=== PATIENT | female | born 1990 | race Caucasian/White ===

== ENCOUNTER 2019-01-31 04:21 | Inpatient (IN) | payer OTHER, SELFPAY ==
[2019-01-31 05:26] LABS: Add Manual Diff / Slide Review NO; Basophils Absolute Auto 100 /uL (0-100); Basophils Percent Auto 0.9 % (0-2); Eosinophils Absolute Auto 100 /uL (0-450); Eosinophils Percent Auto 0.9 % (2-4); Hematocrit 36.9 % (36-46); Hemoglobin 12.5 g/dL (12.0-16.0); Lymphocytes Absolute Auto 2900 /uL (1100-4500); Lymphocytes Percent Auto 23.9 % (25-40); Mean Corpuscular HGB Conc 33.8 % (30-36); Mean Corpuscular Hemoglobin 30.4 PG (26-34); Mean Corpuscular Volume 90.1 fL (80-100); Monocytes Absolute Auto 700 /uL (0-900); Monocytes Percent Auto 5.8 % (3-14); Neutrophils Absolute Auto 8200 /uL (1500-7000); Neutrophils Percent Auto 68.5 % (50-75); Platelet Count 235 X10^3/uL (150-400); Red Blood Cell Count 4.09 X10^6/uL (4.0-5.2); Red Cell Distribution Width 13.4 % (11.6-14.8)
[2019-01-31 05:26] LABS: Appearance Urine UA SL CLOUDY; Bilirubin Urine UA NEGATIVE (NEGATIVE); Color Urine UA YELLOW; Glucose Urine UA NEGATIVE (Negative); Ketones Urine UA TRACE (NEGATIVE); Leukocyte Esterase Urine UA 1+ (NEGATIVE); Nitrite Urine UA NEGATIVE (Negative); Occult Blood Urine UA 3+ (Negative); Protein Urine UA 1+ (Negative); Specific Gravity Urine UA >=1.030 (1.000-1.035); Urobilinogen Urine UA 0.2 E.U./dL (0.2); pH Urine UA 5.5 (4.5-8.0)
--- NOTE | 2019-01-31 05:37 | DI.US.S_ITS ---
PROCEDURE: US OB >= 14 WEEKS FETUS INDICATIONS: 28 wk IUP bleeding OUTSIDE/PRIOR DATING DATA: Last menstrual period (LMP): Unknown. LMP-based estimated date of delivery (MAURO): Not applicable. Per patient, expected gestational age is approximately 28 weeks.. First dating scan (date and location): [facility]. No report available.. Estimated date of delivery (MAURO) from first dating scan: Not applicable. TECHNIQUE: Real-time scanning was performed of the fetus, with image documentation and biometric measurements. Endovaginal scanning: Performed to further evaluate the cervix COMPARISON: None. FINDINGS: General: A single living intrauterine gestation is present. Presentation: Vertex. Placenta: Placental position is posterior, without previa. Amniotic fluid index: 10.8 cm cm, normal range is 5-24 cm. heart rate: 147 beats per minute. Maternal cervical canal: Between 1.9 and 2.4 cm. Normal lower limit is 2.5 cm. there may be slight cervical funneling. Umbilical cord insertion on the placenta is within 1.2 cm the placental margin. 3 vessels were identified. biometrics: Technically difficult study secondary to maternal motion, contractions, lack of good acoustic window, and head position. Biparietal diameter: Approximately 8.1 cm, 32 weeks 3 days Head circumference: Approximately 29.1 cm, 32 weeks one day Abdominal circumference: Approximately 27.0 cm, 31 weeks one day Femur length: 6.5 cm, 33 weeks 5 days Estimated gestational age from initial scan: not applicable. Composite gestational age from present scan: 32 weeks 3 days Estimated weight and percentile: 1907 g plus or -282 g (4 lbs. 3 oz. plus or -10 ounces). . A four-chamber heart was visible. Anatomic survey was not completed. IMPRESSION: 1. Single living intrauterine with a composite gestational age by today's measurements of 32 weeks 3 days and estimated due date of 03/25/19. 2. Mildly shortened cervix with slight funneling. Clinical correlation recommended. 3. Marginal umbilical cord insertion on the posterior placenta. Dictated by: Osiris Simmons M.D. on 01/31/2019 at 8:32 Approved by: Osiris Simmons M.D. on 01/31/2019 at 8:49
[2019-01-31 05:50] LABS: RBC Urine 30-100/HPF (0-5/HPF); Squamous Epithelial Cell Urine 1-5 /HPF; WBC Urine 1-5/HPF (0-5/HPF)
[2019-01-31 05:51] LABS: Bacteria Urine Moderate (10-30); Culture Indicated Urine Specimen Cultured
[2019-01-31 06:56] LABS: Hepatitis B Surface Antigen NEGATIVE s/c (NEGATIVE); Rubella Antibody IgG 11.8 IU/mL (>15)
--- NOTE | 2019-01-31 07:18 | RT ---
CALLED TO EMERGENT VAGINAL DELIVERY OF 32 WEEK OLD. BABY BORN AT 0708 W/ IMMEDIATE CRY. BABY WARMED, DRIED, AND STIMULATED. MILD ACRO-CYANOSIS NOTED, QUICKLY IMPROVING ON RA. O2 SAT ON RA NOTED AT 80% AND IMPROVING, WELL WITHIN NORMAL LIMIT. TONE AND HR BOTH GOOD. INITIAL BILATERAL CRACKLES IMPROVED TO CLEAR W/ CRY. BULB SX DONE FOR A SMALL AMT OF CLEAR, BOOD-TINGED AMNIOTIC FLUID. BABY LEFT IN CARE OF RN AND LEGAL LIBRARIAN.
--- NOTE | 2019-01-31 08:00 | PM.OBHP.1 ---
OB HPI Date/Time Date of admission: 01/31/19 Date Patient Seen: 01/31/19 Time Patient Seen: 08:01 History of Present Condition Chief complaint: obs : 5 Para: 1 Estimated Date of Delivery: 03/25/19 Estimated Gestational Age (weeks): 33+2 Narrative: Geovanna Loera is a 28 year old female 5 para 0 1 3 1 with no care who presented in labor Indications Other reason(s) for admission: labor History of Present care: none Dating criteria: based on 3rd trimester US only Obstetrical complications: labor and other (No care) Medical complications: other (Drug use during ) Narrative: Patient admits to using morphine yesterday, cocaine 10 days ago Preadmission Labs Blood type: O (+) positive -: Antibody screen: negative, GBS status: unknown and HBsAG: negative -: Rubella: not immune HCT: 36.9 Prior (ies) History: C/S at 33 weeks for breech and PTL Evaluation Evaluation Baseline heart rate: 135 Variability: Average (6-10) monitor accelerations: Present monitor decelerations: Absent Contraction Frequency (minutes): 3 Uterine Contraction Intensity: Moderate Category of Tracing: I Cervical dilation (cm): 10 Cervical effacement (%): 100 station: +2 Laboratory results: Laboratory Tests 01/31/19 01/31/19 01/31/19 04:30 04:45 04:45 WBC 12.0 H RBC 4.09 Hgb 12.5 Hct 36.9 MCV 90.1 MCH 30.4 MCHC 33.8 RDW 13.4 Plt Count 235 Neut % (Auto) 68.5 Lymph % (Auto) 23.9 L [place] % (Auto) 5.8 Eos % (Auto) 0.9 L Baso % (Auto) 0.9 Neut # (Auto) 8200 H Lymph # (Auto) 2900 [place] # (Auto) 700 Eos # (Auto) 100 Baso # (Auto) 100 Urine Color Yellow Urine Appearance Sl cloudy Urine pH 5.5 Ur Specific [place] >=1.030 H Urine Protein 1+ H Urine Glucose (UA) Negative Urine Ketones Trace H Urine Occult Blood 3+ H Urine Nitrate Negative Urine Bilirubin Negative Urine Urobilinogen 0.2 Ur Leukocyte Esterase 1+ H Urine RBC 30-100/hpf H Urine WBC 1-5/hpf Ur Squamous Epith Cells 1-5 /hpf Urine Bacteria Moderate (10-30) H Ur Culture Indicated? Specimen cultured Hep Bs Antigen Rubella Antibody Blood Type O Positive Antibody Screen Negative 01/31/19 05:44 WBC RBC Hgb Hct MCV MCH MCHC RDW Plt Count Neut % (Auto) Lymph % (Auto) [place] % (Auto) Eos % (Auto) Baso % (Auto) Neut # (Auto) Lymph # (Auto) [place] # (Auto) Eos # (Auto) Baso # (Auto) Urine Color Urine Appearance Urine pH Ur Specific [place] Urine Protein Urine Glucose (UA) Urine Ketones Urine Occult Blood Urine Nitrate Urine Bilirubin Urine Urobilinogen Ur Leukocyte Esterase Urine RBC Urine WBC Ur Squamous Epith Cells Urine Bacteria Ur Culture Indicated? Hep Bs Antigen Negative Rubella Antibody 11.8 L Blood Type Antibody Screen [facility] Medical History Drug use affecting (Acute) Surgical History H/O hernia repair (Acute) Status post delivery Social History marital status: unmarried,single number of children: 1 household members: family and children lives independently: No caregiver/support person: Yes (Mother) housing: house occupational status: unemployed Smoking Status: Current every day smoker quit status: considering quitting alcohol intake: never substance use type: crack/cocaine, opiates and methamphetamine Social History marital status: unmarried,single number of children: 1 household members: family and children lives independently: No caregiver/support person: Yes (Mother) housing: house occupational status: unemployed Smoking Status: Current every day smoker quit status: considering quitting alcohol intake: never substance use type: crack/cocaine, opiates and methamphetamine Meds Allergies Allergy/AdvReac Type Severity Reaction Status Date / Time codeine Allergy Hives Verified 01/31/19 05:04 Exam Vital Signs (past 8 hours): Generally: Patient in severe distress due to contractions Lungs: Clear to auscultation bilaterally Cardiovascular: Regular rate and rhythm Fundal height: 32 cm Extremities: Negative Homans Objective Labs Result Diagrams: 01/31/19 04:45 Labs: Laboratory Results - last 24 hr 01/31/19 01/31/19 01/31/19 04:30 04:45 04:45 WBC 12.0 H RBC 4.09 Hgb 12.5 Hct 36.9 MCV 90.1 MCH 30.4 MCHC 33.8 RDW 13.4 Plt Count 235 Neut % (Auto) 68.5 Lymph % (Auto) 23.9 L [place] % (Auto) 5.8 Eos % (Auto) 0.9 L Baso % (Auto) 0.9 Neut # (Auto) 8200 H Lymph # (Auto) 2900 [place] # (Auto) 700 Eos # (Auto) 100 Baso # (Auto) 100 Urine Color Yellow Urine Appearance Sl cloudy Urine pH 5.5 Ur Specific [place] >=1.030 H Urine Protein 1+ H Urine Glucose (UA) Negative Urine Ketones Trace H Urine Occult Blood 3+ H Urine Nitrate Negative Urine Bilirubin Negative Urine Urobilinogen 0.2 Ur Leukocyte Esterase 1+ H Urine RBC 30-100/hpf H Urine WBC 1-5/hpf Ur Squamous Epith Cells 1-5 /hpf Urine Bacteria Moderate (10-30) H Ur Culture Indicated? Specimen cultured Hep Bs Antigen Rubella Antibody Blood Type O Positive Antibody Screen Negative 01/31/19 05:44 WBC RBC Hgb Hct MCV MCH MCHC RDW Plt Count Neut % (Auto) Lymph % (Auto) [place] % (Auto) Eos % (Auto) Baso % (Auto) Neut # (Auto) Lymph # (Auto) [place] # (Auto) Eos # (Auto) Baso # (Auto) Urine Color Urine Appearance Urine pH Ur Specific [place] Urine Protein Urine Glucose (UA) Urine Ketones Urine Occult Blood Urine Nitrate Urine Bilirubin Urine Urobilinogen Ur Leukocyte Esterase Urine RBC Urine WBC Ur Squamous Epith Cells Urine Bacteria Ur Culture Indicated? Hep Bs Antigen Negative Rubella Antibody 11.8 L Blood Type Antibody Screen Assessment and Plan Assessment and Plan Assessment and Plan narrative: Assessment: 28-year-old 5 para 0131 at 33-,2/7 weeks gestation by a third-trimester ultrasound with labor and imminent delivery Drug use during this Previous section Plan: Dr. Sim, open developer operator, notified Transport team notified OR team notified Expected management to urgent section versus vaginal delivery
--- NOTE | 2019-01-31 08:03 | P.HPOB_ITS ---
OB HPI Date/Time Date of admission: 01/31/19 Date Patient Seen: 01/31/19 Time Patient Seen: 08:01 History of Present Condition Chief complaint: obs : 5 Para: 1 Estimated Date of Delivery: 03/25/19 Estimated Gestational Age (weeks): 33+2 Narrative: Geovanna Loera is a 28 year old female 5 para 0 1 3 1 with no care who presented in labor Indications Other reason(s) for admission: labor History of Present care: none Dating criteria: based on 3rd trimester US only Obstetrical complications: labor and other (No care) Medical complications: other (Drug use during ) Narrative: Patient admits to using morphine yesterday, cocaine 10 days ago Preadmission Labs Blood type: O (+) positive -: Antibody screen: negative, GBS status: unknown and HBsAG: negative -: Rubella: not immune HCT: 36.9 Prior (ies) History: C/S at 33 weeks for breech and PTL Evaluation Evaluation Baseline heart rate: 135 Variability: Average (6-10) monitor accelerations: Present monitor decelerations: Absent Contraction Frequency (minutes): 3 Uterine Contraction Intensity: Moderate Category of Tracing: I Cervical dilation (cm): 10 Cervical effacement (%): 100 station: +2 Laboratory results: Laboratory Tests 01/31/19 01/31/19 01/31/19 04:30 04:45 04:45 WBC 12.0 H RBC 4.09 Hgb 12.5 Hct 36.9 MCV 90.1 MCH 30.4 MCHC 33.8 RDW 13.4 Plt Count 235 Neut % (Auto) 68.5 Lymph % (Auto) 23.9 L [place] % (Auto) 5.8 Eos % (Auto) 0.9 L Baso % (Auto) 0.9 Neut # (Auto) 8200 H Lymph # (Auto) 2900 [place] # (Auto) 700 Eos # (Auto) 100 Baso # (Auto) 100 Urine Color Yellow Urine Appearance Sl cloudy Urine pH 5.5 Ur Specific [place] >=1.030 H Urine Protein 1+ H Urine Glucose (UA) Negative Urine Ketones Trace H Urine Occult Blood 3+ H Urine Nitrate Negative Urine Bilirubin Negative Urine Urobilinogen 0.2 Ur Leukocyte Esterase 1+ H Urine RBC 30-100/hpf H Urine WBC 1-5/hpf Ur Squamous Epith Cells 1-5 /hpf Urine Bacteria Moderate (10-30) H Ur Culture Indicated? Specimen cultured Hep Bs Antigen Rubella Antibody Blood Type O Positive Antibody Screen Negative 01/31/19 05:44 WBC RBC Hgb Hct MCV MCH MCHC RDW Plt Count Neut % (Auto) Lymph % (Auto) [place] % (Auto) Eos % (Auto) Baso % (Auto) Neut # (Auto) Lymph # (Auto) [place] # (Auto) Eos # (Auto) Baso # (Auto) Urine Color Urine Appearance Urine pH Ur Specific [place] Urine Protein Urine Glucose (UA) Urine Ketones Urine Occult Blood Urine Nitrate Urine Bilirubin Urine Urobilinogen Ur Leukocyte Esterase Urine RBC Urine WBC Ur Squamous Epith Cells Urine Bacteria Ur Culture Indicated? Hep Bs Antigen Negative Rubella Antibody 11.8 L Blood Type Antibody Screen [facility] Medical History Drug use affecting (Acute) Surgical History H/O hernia repair (Acute) Status post delivery Social History marital status: unmarried,single number of children: 1 household members: family and children lives independently: No caregiver/support person: Yes (Mother) housing: house occupational status: unemployed Smoking Status: Current every day smoker quit status: considering quitting alcohol intake: never substance use type: crack/cocaine, opiates and methamphetamine Social History marital status: unmarried,single number of children: 1 household members: family and children lives independently: No caregiver/support person: Yes (Mother) housing: house occupational status: unemployed Smoking Status: Current every day smoker quit status: considering quitting alcohol intake: never substance use type: crack/cocaine, opiates and methamphetamine Meds Allergies Allergy/AdvReac Type Severity Reaction Status Date / Time codeine Allergy Hives Verified 01/31/19 05:04 Exam Vital Signs (past 8 hours): Generally: Patient in severe distress due to contractions Lungs: Clear to auscultation bilaterally Cardiovascular: Regular rate and rhythm Fundal height: 32 cm Extremities: Negative Homans Objective Labs Result Diagrams: 01/31/19 04:45 Labs: Laboratory Results - last 24 hr 01/31/19 01/31/19 01/31/19 04:30 04:45 04:45 WBC 12.0 H RBC 4.09 Hgb 12.5 Hct 36.9 MCV 90.1 MCH 30.4 MCHC 33.8 RDW 13.4 Plt Count 235 Neut % (Auto) 68.5 Lymph % (Auto) 23.9 L [place] % (Auto) 5.8 Eos % (Auto) 0.9 L Baso % (Auto) 0.9 Neut # (Auto) 8200 H Lymph # (Auto) 2900 [place] # (Auto) 700 Eos # (Auto) 100 Baso # (Auto) 100 Urine Color Yellow Urine Appearance Sl cloudy Urine pH 5.5 Ur Specific [place] >=1.030 H Urine Protein 1+ H Urine Glucose (UA) Negative Urine Ketones Trace H Urine Occult Blood 3+ H Urine Nitrate Negative Urine Bilirubin Negative Urine Urobilinogen 0.2 Ur Leukocyte Esterase 1+ H Urine RBC 30-100/hpf H Urine WBC 1-5/hpf Ur Squamous Epith Cells 1-5 /hpf Urine Bacteria Moderate (10-30) H Ur Culture Indicated? Specimen cultured Hep Bs Antigen Rubella Antibody Blood Type O Positive Antibody Screen Negative 01/31/19 05:44 WBC RBC Hgb Hct MCV MCH MCHC RDW Plt Count Neut % (Auto) Lymph % (Auto) [place] % (Auto) Eos % (Auto) Baso % (Auto) Neut # (Auto) Lymph # (Auto) [place] # (Auto) Eos # (Auto) Baso # (Auto) Urine Color Urine Appearance Urine pH Ur Specific [place] Urine Protein Urine Glucose (UA) Urine Ketones Urine Occult Blood Urine Nitrate Urine Bilirubin Urine Urobilinogen Ur Leukocyte Esterase Urine RBC Urine WBC Ur Squamous Epith Cells Urine Bacteria Ur Culture Indicated? Hep Bs Antigen Negative Rubella Antibody 11.8 L Blood Type Antibody Screen Assessment and Plan Assessment and Plan Assessment and Plan narrative: Assessment: 28-year-old 5 para 0131 at 33-,2/7 weeks gestation by a third-trimester ultrasound with labor and imminent delivery Drug use during this Previous section Plan: Dr. Sim, ice cream dipper, notified Transport team notified OR team notified Expected management to urgent section versus vaginal delivery
--- NOTE | 2019-01-31 08:11 | PM.OBPRVD ---
Events: No Care and Labor < 37 Weeks Delivery date: 01/31/19 Intrapartal events: Precipitous Labor < 3 hours and Abruptio Placenta (5-10%) Cervical ripening method: none Induction method: none Delivery monitor: external FHT and external uterine Route of delivery: Episiotomy description: None L&D Laceration Description: None Estimated blood loss (mL): 250 Anesthesia type: None Complications: labor Partial abruption Narrative: Patient presented with uterine irritability and a small amount of vaginal bleeding. An ultrasound revealed a 33-,2/7 weeks gestation in the vertex presentation. Cervix was shortened to 1.9 cm. Patient progressed rapidly to complete dilation with a bulging bag of water at the vaginal opening. Patient felt the urge to push. Before the OR team arrived, a live female delivered spontaneously over an intact perineum at 7:08 a.m.. The cord was double clamped and cut. The was handed to waiting Peds and RT. Cord bloods were obtained. The placenta delivered intact with a 3 vessel cord at 7:24 a.m.. 10 units of Pitocin were given in the IV fluids prior to placental delivery. Fundus was massaged to firm. No lacerations. Apgars 7 at 1 min and 8 at 5 min. Weight 4 lb 10 oz. Mom and stable to recovery. Baby most likely transferred in the next few hours due to anticipatin of abstinence syndrome. Plan for aftercare: Mom to routine care
[2019-01-31 09:09] LABS: Urine Amphetamines Positive (Negative); Urine Barbiturates Negative (Negative); Urine Benzodiazepines Negative (Negative); Urine Cocaine Negative (Negative); Urine MDMA Negative (Negative); Urine Methadone Negative (Negative); Urine Methamphetamines Positive (Negative); Urine Morphine/Opi cutoff 2000 Negative (Negative); Urine Oxycodone Negative (Negative); Urine Phencyclidine Negative (Negative); Urine Tetrahydrocannabinol Negative (Negative); Urine Tricyclic Antidepressant Negative (Negative)
[2019-01-31 15:08] LABS: Urine N gonorrhoeae NOT DETECTED
[2019-01-31 15:11] LABS: Urine Chlamydia NOT DETECTED
[2019-01-31 16:51] VITALS: BP 157/85; PULSE 61; RESP 16; TEMP 36.4
[2019-01-31] MEDS: MEASLES,MUMPS,RUBELLA VACC/PF 0.5 ML VIAL SUBCUT (17:51)
[2019-02-03 14:03] LABS: RPR Screen Nonreactive (Nonreactive)
== END 2019-01-31 18:10 | disposition home or self-care (01) | DRG 806 ==
PROVIDERS: Admitting Provider Obstetrics & Gynecology; Visit Provider Obstetrics & Gynecology
DX: O60.14X0 Preterm labor third trimester with preterm delivery third trimester, not applicable or unspecified (principal); O99.324 Drug use complicating childbirth; Z37.0 Single live birth; F15.90 Other stimulant use, unspecified, uncomplicated; F11.90 Opioid use, unspecified, uncomplicated; O62.3 Precipitate labor; O34.211 Maternal care for low transverse scar from previous cesarean delivery; Z3A.33 33 weeks gestation of pregnancy
CPT/HCPCS: 36415; 59050; 59612; 76811; 80055; 80305; 81001; 86850; 86900; 86901; 87077; 87086; 87186; 87491; 87591; 99222; G0378; G0379

== ENCOUNTER 2019-02-23 13:28 | Observation (INO) | payer OTHER, MEDICAID, SELFPAY ==
[2019-02-23] VITALS (16 sets, daily range): BP systolic 103–170; BP diastolic 68–107; PULSE 54–118; RESP 12–20; TEMP 36.8–37.2; O2SAT 97–100; BMI 29.7
--- NOTE | 2019-02-23 | PATH_ITS ---
[facility] Accession Number: [id number] . 01 Material submitted: . gallbladder - GALLBLADDER AND CONTENTS . 02 Diagnosis: Gallbladder, Cholecystectomy: Chronic cholecystitis with cholelithiasis. One benign cystic duct lymph node identified. Negative for dysplasia and malignancy. I/02/26/2019 . 02 Electronically signed: . Violet Godoy MD, Pathologist NPI- [id number] . 01 Gross description: . Received in formalin, labeled gallbladder / contents, is an intact gallbladder (length-9.2 cm, diameter-3.5 cm) with umaña-pink smooth shiny serosa and a patent cystic duct. A anderson rubbery lymph node (1.5 x 0.7 x 0.5 cm) is identified. The lumen contains clear brown tacky fluid and multiple fragmented and intact yellow friable calculi (3.5 x 1.8 x 1.3 cm in aggregate). The mucosa is anderson smooth and flat. The wall is up to 0.1 cm thick. No nodules, masses or lesions are identified. Section code: (A1) cystic duct resection margin and two serial sections from the body; (A2) two longitudinal sections from the fundus; (A3) one bisected lymph node. ([id number]) /MRV . 02 Pathologist provided ICD-10: K80.60 . 02 CPT . 746336 Performed at: 01 [facility] [address] [facility], [place], [place] [id number] MD Chandan Dow MD Phone: [phone] Performed at: [facility] [address] [place], [place] [id number] MD Violet Godoy MD Phone: [phone]
--- NOTE | 2019-02-23 13:33 | DI.RAD.S_ITS ---
PROCEDURE: XR CHEST 1V INDICATIONS: chest pain TECHNIQUE: One view of the chest was acquired. COMPARISON: None. FINDINGS: Surgical changes and devices: None. Lungs and pleura: Lungs are clear. No pleural effusions or pneumothorax. Mediastinum: Mediastinal contours appear normal. Heart size is normal. Bones and chest wall: No suspicious bony lesions. Overlying soft tissues appear unremarkable. IMPRESSION: Normal for age, source of current chest pain symptoms is not seen. Dictated by: Justino Schreiber M.D. on 02/23/2019 at 14:03 Approved by: Justino Schreiber M.D. on 02/23/2019 at 14:03
[2019-02-23 13:52] LABS: Add Manual Diff / Slide Review NO; Basophils Absolute Auto 100 /uL (0-100); Basophils Percent Auto 0.4 % (0-2); Eosinophils Absolute Auto 100 /uL (0-450); Hematocrit 44.7 % (36-46); Hemoglobin 14.4 g/dL (12.0-16.0); Lymphocytes Absolute Auto 2400 /uL (1100-4500); Lymphocytes Percent Auto 17.9 % (25-40); Mean Corpuscular HGB Conc 32.3 % (30-36); Mean Corpuscular Hemoglobin 29.2 PG (26-34); Mean Corpuscular Volume 90.4 fL (80-100); Monocytes Absolute Auto 500 /uL (0-900); Monocytes Percent Auto 3.9 % (3-14); Neutrophils Absolute Auto 10300 /uL (1500-7000); Neutrophils Percent Auto 76.8 % (50-75); Platelet Count 303 X10^3/uL (150-400); Red Blood Cell Count 4.95 X10^6/uL (4.0-5.2); Red Cell Distribution Width 13.5 % (11.6-14.8); White Blood Cell Count 13.4 X10^3/uL (4.5-11.0)
[2019-02-23 13:59] LABS: INR 0.9 (0.9-1.3); Prothrombin Time 10.1 SECONDS (10.1-12.7)
[2019-02-23 14:02] LABS: PTT Partial Thromboplastin Tim 29 SECONDS (26.4-36.2)
--- NOTE | 2019-02-23 14:02 | PC.NURSE ---
Patient is 4 weeks .
[2019-02-23 14:06] LABS: Alanine Aminotransferase 27 IU/L (9-52); Albumin 4.3 g/dL (3.5-5.0); Albumin Globulin Ratio 1.5 (1.0-2.8); Alkaline Phosphatase 74 U/L (38-126); Aspartate Aminotransferase 19 IU/L (14-36); BUN Creatinine Ratio 21.4 (6-22); Bilirubin Total 0.1 mg/dL (0.2-1.3); Blood Urea Nitrogen 15 mg/dL (7-17); Calcium 9.3 mg/dL (8.4-10.2); Carbon Dioxide 26 mmol/L (22-32); Chloride 104 mmol/L (98-107); Creatine Kinase 61 U/L (30-135); Estimated Glomerular Filt Rate > 60.0 mL/min (>60); Globulin 2.8 g/dL (1.7-4.1); Glucose 90 mg/dL (70-100); HEMOLYSIS < 15 (0-50); Lipase 61 U/L (23-300); Potassium 4.2 mmol/L (3.4-5.1); Sodium 139 mmol/L (137-145); Total Protein 7.1 g/dL (6.3-8.2)
[2019-02-23 14:16] LABS: Troponin I < 0.012 ng/mL (0.01-0.034)
[2019-02-23] MEDS: LACTATED RINGERS 1,000 ML 42 ML IV ×2 (15:00→19:45)
[2019-02-23] MEDS: KETOROLAC 60 MG/2 ML VIAL 30 MG IV (15:09)
--- NOTE | 2019-02-23 15:25 | ED_ITS ---
HPI - Chest Pain General Chief Complaint: Chest Pain Stated Complaint: CHEST PAIN Time Seen by Provider: 02/23/19 15:41 Source: patient Mode of arrival: ambulatory Limitations: no limitations History of Present Illness HPI narrative: This is a 28-year-old female comes to the emergency department with complaint of chest/epigastric pain. Patient states that the pain started about 1:00 a.m. this morning. She points directly to the epigastric area she states it radiates a little bit towards her back. She tried some Gas-X this morning without any improvement. It has not gone away it has been pretty much constant. She has tried different positioning, certain positions do seem to make it a little bit worse. She has not had similar symptoms in the past. She denies any fevers or chills. She has felt little warm a couple times. She had a cold about 2 weeks ago but otherwise no recent cold cough or congestion. She denies any shortness of breath she denies any nausea no vomiting, no issues with bowel movement or urination. She did have a UTI prior to delivery. She is 4 weeks with a , patient states no complications. She did have a hernia after repair with her 1st child. She does states that drinking liquids particularly coffee or carbonated beverages seems to make it worse. She denies any issues with food. She denies any other past medical history. She is allergic to codeine, she is not taking any medications including prenatals. Related Data Home Medications Medication Instructions Recorded Confirmed No Known Home Medications 02/23/19 02/23/19 Allergies Allergy/AdvReac Type Severity Reaction Status Date / Time codeine Allergy Hives Verified 02/23/19 13:33 Review of Systems Review of Systems ROS Unobtainable: All systems reviewed & are unremarkable except as noted in HPI and below Constitutional Denies chills, Denies fever(s), Denies lethargy, Denies weakness and Reports other (felt a little warm) Cardiovascular Denies chest pain, Denies irregular heart rhythm, Denies lightheadedness, Denies palpitations, Denies dyspnea, Denies dyspnea on exertion and Denies orthopnea Respiratory Denies change in phlegm color, Denies cough, Denies hemoptysis, Denies excessive phlegm production, Reports pain on inspiration, Denies pain with cough, Denies dyspnea, Denies dyspnea on exertion and Denies wheezing Gastrointestinal Gastrointestinal: Reports abdominal pain (Epigastric), Denies melena, Denies hematochezia, Denies change in bowel habits, Denies constipation, Denies diarrhea, Denies nausea and Denies vomiting Genitourinary Denies abnormal vaginal bleeding, Denies hematuria, Reports urinary frequency, Denies dysuria, Denies flank pain and Denies urinary urgency Musculoskeletal Reports back pain Integumentary/Breasts Denies rash Neurologic Denies weakness Endocrine Denies palpitations Allergic/Immunologic Denies wheezing [facility] Medical History Drug use affecting (Acute) Surgical History H/O hernia repair (Acute) Status post delivery Social History marital status: unmarried,single number of children: 1 household members: family and children lives independently: No caregiver/support person: Yes (Mother) housing: house occupational status: unemployed Smoking Status: Current every day smoker quit status: considering quitting alcohol intake: never substance use type: crack/cocaine, opiates and methamphetamine Social History marital status: unmarried,single number of children: 1 household members: family and children lives independently: No caregiver/support person: Yes (Mother) housing: house occupational status: unemployed Smoking Status: Current every day smoker quit status: considering quitting alcohol intake: never substance use type: crack/cocaine, opiates and methamphetamine Exam Narrative Exam Narrative: GENERAL: Alert and oriented x three, obese, well-appearing female in mild distress. Patient is on her side talking on the cell phone when I enter the room. HEENT: Head normocephalic, atraumatic, EOMI, pupils reactive, face symmetric, moist mucous membranes NECK: Supple, full range of motion CARDIOVASCULAR: Regular rate and rhythm without murmurs, rubs or gallops. RESPIRATORY: Breath sounds equal bilaterally, no wheezes rales or rhonchi. ABDOMEN: Soft, positive for some moderate epigastric and right upper quadrant tenderness. Normoactive bowel sounds all 4 quadrants. No guarding or rebound, rigidity, no mass : No CVA tenderness EXTREMITIES: Normal range of motion, no clubbing or edema. Neurovascularly intact NEUROLOGICAL: Cranial nerves II through XII grossly intact. Moving all extremities SKIN: Warm, dry, no petechiae, no rashes or lesions. Initial Vital Signs Initial Vital Signs: Vital Signs Temperature 98.2 F 02/23/19 13:33 Pulse Rate 79 02/23/19 13:33 Respiratory Rate 16 02/23/19 13:33 Blood Pressure 151/93 H 02/23/19 13:33 Pulse Oximetry 99 02/23/19 13:33 Course Orders Ordered: ED Orders 02/23/19 13:33 XR chest 1V Stat 02/23/19 13:35 EKG-12 Lead Stat 02/23/19 13:43 Complete Blood Count AUTO DIFF Stat Comprehensive Metabolic Panel Stat Lipase Stat Partial Thromboplastin Time Stat Prothrombin Time INR Stat Troponin & CK Cardiac Panel Stat 02/23/19 15:55 US abdomen complete Stat Cefazolin Sodium/Dextrose (Ancef) 2 gm in 100 mls @ 200 mls/hr IV NOW ONE Stop: 02/23/19 18:34 Discontinued Medications Ketorolac Tromethamine (Toradol) 30 mg IV NOW ONE Stop: 02/23/19 14:56 Last Admin: 02/23/19 15:09 Dose: 30 mg Pantoprazole Sodium (Protonix) 40 mg IV NOW ONE Stop: 02/23/19 15:56 Last Admin: 02/23/19 16:26 Dose: 40 mg Vital Signs - 8 hr 02/23/19 13:33 02/23/19 14:00 02/23/19 15:00 Temperature 98.2 F Pulse Rate 79 67 60 Respiratory Rate 16 Blood Pressure 151/93 H Blood Pressure [Left Arm] 134/98 H 154/83 H Pulse Oximetry 99 99 100 02/23/19 16:00 02/23/19 17:00 02/23/19 18:12 Temperature Pulse Rate 54 L 70 60 Respiratory Rate 19 18 Blood Pressure Blood Pressure [Left Arm] 134/99 H 146/89 H 103/85 Pulse Oximetry 100 99 100 MDM - Chest Pain Lab Data Attestation: I reviewed the patient's lab results. Result diagrams: 02/23/19 13:43 02/23/19 13:43 Lab Results 02/23/19 02/23/19 02/23/19 Range/Units 13:43 13:43 13:43 WBC 13.4 H (4.5-11.0) X10^3/uL RBC 4.95 (4.0-5.2) X10^6/uL Hgb 14.4 (12.0-16.0) g/dL Hct 44.7 (36-46) % MCV 90.4 (80-100) fL MCH 29.2 (26-34) PG MCHC 32.3 (30-36) % RDW 13.5 (11.6-14.8) % Plt Count 303 (150-400) X10^3/uL Neut % (Auto) 76.8 H (50-75) % Lymph % (Auto) 17.9 L (25-40) % [place] % (Auto) 3.9 (3-14) % Eos % (Auto) 1.0 L (2-4) % Baso % (Auto) 0.4 (0-2) % Neut # (Auto) 92594 H (8873-5391) /uL Lymph # (Auto) 2400 (9201-3834) /uL [place] # (Auto) 500 (0-900) /uL Eos # (Auto) 100 (0-450) /uL Baso # (Auto) 100 (0-100) /uL PT 10.1 (10.1-12.7) SECONDS INR 0.9 (0.9-1.3) APTT 29 (26.4-36.2) SECONDS Sodium 139 (137-145) mmol/L Potassium 4.2 (3.4-5.1) mmol/L Chloride 104 (98-107) mmol/L Carbon Dioxide 26 (22-32) mmol/L BUN 15 (7-17) mg/dL Creatinine 0.70 (0.52-1.04) mg/dL Estimated GFR > 60.0 (>60) mL/min BUN/Creatinine Ratio 21.4 (6-22) Glucose 90 (70-100) mg/dL Calcium 9.3 (8.4-10.2) mg/dL Total Bilirubin 0.1 L (0.2-1.3) mg/dL AST 19 (14-36) IU/L ALT 27 (9-52) IU/L Alkaline Phosphatase 74 (38-126) U/L Total Creatine Kinase 61 (30-135) U/L CK-MB (CK-2) TNP CK-MB (CK-2) Rel Index TNP Troponin I < 0.012 (0.01-0.034) ng/mL Total Protein 7.1 (6.3-8.2) g/dL Albumin 4.3 (3.5-5.0) g/dL Globulin 2.8 (1.7-4.1) g/dL Albumin/Globulin Ratio 1.5 (1.0-2.8) Lipase 61 (23-300) U/L Point of Care Testing Test Results Negative Urine Dip Bedside Urine Glucose Negative Bedside Urine Bilirubin - Negative Bedside Urine Ketone - Negative Urine Specific [place] 1.015 Bedside Urine Occult Blood - Negative Bedside Urine pH 8.0 Bedside Urine Protein - Negative Bedside Urine Urobilinogen - Negative Bedside Urine Nitrite - Negative Bedside Urine Leukocytes ++ 125 Esterase Imaging Data Chest x-ray: Radiologist's impression: [address] [address] XRay Report Signed Patient: Geovanna Loera [facility]#: [id number] : 1990Acct:[id number] Age/Sex: 28 FDate of Service: 02/23/19 Loc: ED Accession Number: [id number] Procedure: XR chest 1V Ordering Provider: Monica Menjivar D.O. PROCEDURE: XR CHEST 1V INDICATIONS: chest pain TECHNIQUE: One view of the chest was acquired. COMPARISON: None. FINDINGS: Surgical changes and devices: None. Lungs and pleura: Lungs are clear. No pleural effusions or pneumothorax. Mediastinum: Mediastinal contours appear normal. Heart size is normal. Bones and chest wall: No suspicious bony lesions. Overlying soft tissues appear unremarkable. IMPRESSION: Normal for age, source of current chest pain symptoms is not seen. Dictated by: Justino Schreiber M.D. on 02/23/2019 at 14:03 Approved by: Justino Schreiber M.D. on 02/23/2019 at 14:03 Abdominal x-ray: Radiologist's impression: Geovanna Loera 28 F [address] [address] Ultrasound Report Signed Patient: Geovanna Loera [facility]#: [id number] : 1990Acct:[id number] Age/Sex: 28 / FDate of Service: 02/23/19 Loc: ED Accession Number: [id number] Procedure: US abdomen complete Ordering Provider: Monica Menjivar D.O. PROCEDURE: US ABDOMEN COMPLETE INDICATIONS: EPIGASTRIC TO BACK, RUQ PAIN, 4 WEEKS TECHNIQUE: Real-time scanning was performed of the abdominal and retroperitoneal organs, with image documentation. COMPARISON: None. FINDINGS: Liver: Liver is normal in size and homogeneous in echotexture. Gallbladder: There is large and too non-mobile stones shadowing within the gallbladder lumen one of the fundus and the second at the gallbladder neck. These measure 2 cm and 1.5 cm, respectively Biliary ducts: Intrahepatic bile ducts are non-dilated. Extrahepatic bile duct caliber measures 4.6 mm. Normal is 6-7 mm or less in diameter, or 10 mm or less post-cholecystectomy. Pancreas: Visualized portions of the pancreas are sonographically normal. Spleen: Spleen is normal in size and homogeneous in echotexture. Kidneys: Kidneys are normal in size and echotexture. Right kidney measures 10.7 cm long; left kidney measures 11.5 cm long. No hydronephrosis or nephrolithiasis. No solid masses. Aorta: Visualized aorta is normal in caliber at less than 3 cm. Iliacs: Proximal common iliac arteries are normal in caliber at less than 2.5 cm. IVC: Intrahepatic inferior vena cava is patent. Miscellaneous: No free abdominal fluid. IMPRESSION: There is a 1.5 cm gallstone impacted at the gallbladder neck. A second 2 cm gallstone appears non-mobile within the gallbladder lumen at the fundus. Biliary distention is not present but early acute cholecystitis would be suspected. Biliary colic without acute cholecystitis also should be considered as a potential cause for this symptomatology. Dictated by: Justino Schreiber M.D. on 02/23/2019 at 16:58 Approved by: Justino Schreiber M.D. on 02/23/2019 at 16:59 ECG Data Attestation: I personally reviewed and interpreted this ECG as follows: Prior ECG tracings: not available for review Interpretation: Sinus rhythm with sinus arrhythmia, rate is 68, P are 142, QRS of 97 and QTC is 382. No ST elevation or depression. MDM Narrative Medical decision making narrative: Spoke with patient's EKG, lab work and chest x-ray did not show any acute findings. On examination patient has tenderness particularly epigastric and right upper quadrant. Patient and I discussed getting ultrasound the abdomen she is about 4 weeks so she could potentially have gallbladder disease although her LFTs and lipase are normal. Patient is a little bit more comfortable after Toradol. We did discuss trying a little Protonix as well. she was clear that she does not wish to have any narcotics. Patient ultrasound shows 2 gallstones. One was 1.5 cm and appears to be stuck in the neck of the gallbladder there is another 2 cm stone. I spoke with Dr. Lilly who came to the emergency department evaluated the patient and plan for OR. Patient will possibly be same-day surgery depending on how she tolerates the procedure. Patient has been stable here in the department. She is motivated to return as she has a 1-month-old , she is not breast feeding she is only using formula. Discharge Plan Departure Patient Disposition: Admitted as Observation Clinical Impression: Gallstones Discharge Date/Time: 02/23/19 18:10 Interventions: ED Discharge Assessment Last Done: 02/23/19 18:18 Admit Date/Time: 02/23/19 17:41 Admit Provider: Sabas Lilly
--- NOTE | 2019-02-23 15:55 | DI.US.S_ITS ---
PROCEDURE: US ABDOMEN COMPLETE INDICATIONS: EPIGASTRIC TO BACK, RUQ PAIN, 4 WEEKS TECHNIQUE: Real-time scanning was performed of the abdominal and retroperitoneal organs, with image documentation. COMPARISON: None. FINDINGS: Liver: Liver is normal in size and homogeneous in echotexture. Gallbladder: There is large and too non-mobile stones shadowing within the gallbladder lumen one of the fundus and the second at the gallbladder neck. These measure 2 cm and 1.5 cm, respectively Biliary ducts: Intrahepatic bile ducts are non-dilated. Extrahepatic bile duct caliber measures 4.6 mm. Normal is 6-7 mm or less in diameter, or 10 mm or less post-cholecystectomy. Pancreas: Visualized portions of the pancreas are sonographically normal. Spleen: Spleen is normal in size and homogeneous in echotexture. Kidneys: Kidneys are normal in size and echotexture. Right kidney measures 10.7 cm long; left kidney measures 11.5 cm long. No hydronephrosis or nephrolithiasis. No solid masses. Aorta: Visualized aorta is normal in caliber at less than 3 cm. Iliacs: Proximal common iliac arteries are normal in caliber at less than 2.5 cm. IVC: Intrahepatic inferior vena cava is patent. Miscellaneous: No free abdominal fluid. IMPRESSION: There is a 1.5 cm gallstone impacted at the gallbladder neck. A second 2 cm gallstone appears non-mobile within the gallbladder lumen at the fundus. Biliary distention is not present but early acute cholecystitis would be suspected. Biliary colic without acute cholecystitis also should be considered as a potential cause for this symptomatology. Dictated by: Justino Schreiber M.D. on 02/23/2019 at 16:58 Approved by: Justino Schreiber M.D. on 02/23/2019 at 16:59
[2019-02-23] MEDS: PANTOPRAZOLE 40 MG VIAL IV (16:26)
--- NOTE | 2019-02-23 17:59 | P.HP_ITS ---
History of Present Illness Date Patient Seen: 02/23/19 Time Patient Seen: 17:50 Chief complaint: CHEST PAIN Narrative: The patient is a woman who developed severe right upper quadrant pain unlike anything she has ever had before. She has been having intermittent upper abdominal pain during her . Carbonated beverages seemed to in sight at the most. Fats did not seem to have an affect. She delivered her baby vaginally 3 weeks ago. She came into the emergency room today because of the severe pain. She is not breast feeding. Baby is being cared for by others right now. The patient last ate about 10:00 a.m.. Patient History Medical History Drug use affecting (Acute) Surgical History H/O hernia repair (Acute) Status post delivery Social History marital status: unmarried,single number of children: 1 household members: family and children lives independently: No caregiver/support person: Yes (Mother) housing: house occupational status: unemployed Smoking Status: Current every day smoker quit status: considering quitting alcohol intake: never substance use type: crack/cocaine, opiates and methamphetamine Family & Social History Social History: household members family,children lives independently No caregiver/support person Yes: Mother Safety & Behavioral: Feels Safe in Current Yes Environment Been Physically Hurt or No Threatened By a Person Tobacco & Substance use: Smoking Status Current every day smoker alcohol intake never Substance Use Type painkillers Meds Home Medications Medication Instructions Recorded Confirmed Type No Known Home Medications 02/23/19 02/23/19 History Allergies Allergy/AdvReac Type Severity Reaction Status Date / Time codeine Allergy Hives Verified 02/23/19 13:33 Review of Systems Review of Systems Patient denies double vision pain arise earaches or sore throat. She has had a little problem with a wisdom tooth in the right. no trouble swallowing. No history of jaundice. No cough cold or asthma. No heart problems or murmurs. No chest pain. No black or bloody bowel movements. No seizures or blackouts. She is a bit anxious at times and has mild depression but has never been treated for them. Patient denies diabetes or problems with her thyroid. No unusual bruising or bleeding. No blood in her urine. After the of her child she was treated for UTI. Exam Vital Signs (past 8 hours): - 02/23/19 13:33 02/23/19 14:00 02/23/19 15:00 Temperature 98.2 F Pulse Rate 79 67 60 Respiratory Rate 16 Blood Pressure 151/93 H Blood Pressure [Left Arm] 134/98 H 154/83 H Pulse Oximetry 99 99 100 02/23/19 16:00 02/23/19 17:00 Temperature Pulse Rate 54 L 70 Respiratory Rate 19 Blood Pressure Blood Pressure [Left Arm] 134/99 H 146/89 H Pulse Oximetry 100 99 Oxygen Delivery Method Room Air Narrative Exam Narrative: Pleasant cooperative woman in no apparent distress. Her eyes are nonicteric. Pupils equal round reactive to light. Conjunctivae are little pale. Her ears are without lesion. Nasal septum midline. Oral mucosa is dry and pale. No open lesions. Neck is supple. There are no nodes in the neck or supraclavicular areas. Trachea is midline and mobile. Lungs are clear to auscultation without rales or rhonchi. Equal percussion. Heart regular rate and rhythm without murmur gallop. No bruit in the neck. Abdomen is doughy soft. Excess skin present. mildly tender in the right upper quadrant. No hernias appreciated of her ventral abdominal wall. the patient is alert and oriented x3. Speech rate and content are appropriate. Affect is appropriate. Objective Labs Result Diagrams: 02/23/19 13:43 02/23/19 13:43 Labs: Laboratory Results - last 24 hr 02/23/19 02/23/19 02/23/19 13:43 13:43 13:43 WBC 13.4 H RBC 4.95 Hgb 14.4 Hct 44.7 MCV 90.4 MCH 29.2 MCHC 32.3 RDW 13.5 Plt Count 303 Neut % (Auto) 76.8 H Lymph % (Auto) 17.9 L [place] % (Auto) 3.9 Eos % (Auto) 1.0 L Baso % (Auto) 0.4 Neut # (Auto) 10460 H Lymph # (Auto) 2400 [place] # (Auto) 500 Eos # (Auto) 100 Baso # (Auto) 100 PT 10.1 INR 0.9 APTT 29 Sodium 139 Potassium 4.2 Chloride 104 Carbon Dioxide 26 BUN 15 Creatinine 0.70 Estimated GFR > 60.0 BUN/Creatinine Ratio 21.4 Glucose 90 Calcium 9.3 Total Bilirubin 0.1 L AST 19 ALT 27 Alkaline Phosphatase 74 Total Creatine Kinase 61 CK-MB (CK-2) TNP CK-MB (CK-2) Rel Index TNP Troponin I < 0.012 Total Protein 7.1 Albumin 4.3 Globulin 2.8 Albumin/Globulin Ratio 1.5 Lipase 61 Assessment & Plan Assessment & Plan narrative: Patient with an ultrasound showing a stone blocking her egress of her gallbladder and a 2nd 1 in the body of the gallbladder. No ductal dilatation. No other lesions seen. I recommend laparoscopic cholecystectomy. As there is an OR team present right now and it is fairly early I will proceed now with laparoscopic cholecystectomy. She is agreeable as she would rather not stay in the hospital. I have discussed the operation with her. Risks of bleeding, infection, hernia, injury to internal organs or ducts which would require major operation to repair, bile leakage all discussed with her. The potential for postoperative ERCP discussed. All questions were answered. She appears to understand and wishes to proceed. Given the findings on ultrasound in her normal labs and lack of history of jaundice will not perform routine cholangiogram.
--- NOTE | 2019-02-23 18:04 | PM.PREOP ---
Pre-operative Note Interval Note History & Physical reviewed/Exam performed by Physician: Yes Changes to H&P: No
--- NOTE | 2019-02-23 18:15 | PC.NURSE ---
[employer] ASSISTANT MANAGER states abx will be administered at OR.
[2019-02-23] MEDS: CEFAZOLIN 2 GM/100 ML FROZ.PIGGY IV (18:30)
[2019-02-23] MEDS: BUPIVACAINE 0.5% (PF) VIAL 30 ML INJ (18:59)
--- NOTE | 2019-02-23 20:23 | PM.OP.1 ---
Operative Date/Time/Diagnoses Date of procedure: 02/23/19 Time of procedure: 20:23 Post-op diagnosis: same (Acute cholecystitis with hydrops and cystic duct obstruction due to gallstone.) Procedure & Clinicians Procedure: Laparoscopic cholecystectomy Same procedure as scheduled: Yes Indications: Severe right upper quadrant pain. Ultrasound showing a stone in the neck of the gallbladder Surgeon: Sabas Lilly Click Yes if Unassisted: Yes Anesthesia Type: General Operative Notes Findings: Markedly edematous acutely inflamed gallbladder with a stone impacted in the neck causing a cystic duct obstruction. white bile within the gallbladder. Closure Type: primary Specimen(s): other (Gallbladder and contents) Prosthetic devices, grafts, tissues, transplants, or devices: None Estimated Blood Loss (mL): 5 Blood products transfused: none Procedure in detail: The patient was placed supine on the operating room table and underwent general endotracheal anesthesia. she was prepped and draped in the usual fashion. Local anesthetic was infiltrated above the umbilicus and an incision made . It was carried down to the level of the peritoneum which was opened under direct vision. Stay sutures of 0 Vicryl were placed in the fascia. a 12 mm trocar was inserted and the abdomen was insufflated. The patient was repositioned and local anesthetic was infiltrated again beneath the right costal margin and 3 small 5 mm ports were inserted. The gallbladder was identified and grasped and elevated. it was quite edematous and there were adhesions of omentum that appeared to be acutely attached and inflamed to its surface. these were taken down with blunt dissection and cautery. the end of the gallbladder was identified and dissection was begun here. A ductal structure in vascular structure that was singular nature going directly the gallbladder were identified and from 1 another. Three clips were placed across each and they were divided leaving 2 in the patient. I thickened piece of tissue was encountered tethering the gallbladder and toward the gallo. Because of concern that it might contain a vessel 3 clips were placed across it and was divided. It just appeared to be inflamed thickened tissue under vision. the gallbladder is then dissected from its bed in the liver. There was a posterior artery that was quite small. Clips were placed across it and it was divided leaving 2 in the patient. the gallbladder was ultimately released and removed through the umbilical port. the right upper quadrant irrigated and suctioned free of fluid. Meticulous hemostasis had been maintained throughout the operation there was no bleeding at completion. The ports were all removed. The stay sutures at the incision near the umbilicus were tied. a 2 0 PDS was placed between them in the fascia. the subcu at this location was closed with 4 O Vicryl interrupted suture. this was done after irrigating. The skin was closed in all areas then with 4 0 Vicryl subcuticular stitches and Steri-Strips. local anesthetic was infiltrated. Steri-Strips were covered with Band-Aids and the patient was awakened, extubated and taken to recovery area in good condition. Complications: none Condition: stable Disposition: PACU Plan for aftercare: Do late hour will be sent to an outpatient status with bed
[2019-02-23] MEDS: ACETAMINOPHEN 325 MG TABLET 975 MG PO (20:45)
[2019-02-23] MEDS: TRAMADOL 50 MG TABLET PO (20:48)
[2019-02-23] MEDS: LACTATED RINGERS 1,000 ML 125 ML IV (21:05)
--- NOTE | 2019-02-23 22:24 | PC.NURSE ---
Post-op note: Geovanna brought from PACU at 2100, she is awake, alert, Ox3. BP hypertensive with BP 149/100 immediately after transfer. Ambulated to BR and voided with no reported difficulty, then back to bed. Gait steady, she denies any dizziness or lightheadedness with movement. LR infusing to LAC IV with no problems except for pump alarming occasionally due to AC positioning. Patient reports pain 4/10 to abdomen, reports good pain relief after receiving Tramadol & Tylenol before transfer from PACU. No nausea, tolerating crackers, pudding & water. Asking for more PO's but asked to wait a while to make sure she tolerates liquids before advancing to solid foods. BT hypoactive, abdomen soft. Right and middle abdomen with 4 lap sites covered with bandaids, all CDI. Patient does have intermittent cough, instructed her to use hands/pillow to splint abdomen. She is a current smoker. She is 3 weeks , she reports her niece is caring for her children tonight, states her baby is formula fed. She states she has good support group/friends/family and lives local, said that baby's father is not good support. Admission paperwork complete, patient oriented to room & call button, instructed not to get out of bed without staff present.
[2019-02-24 00:30] VITALS: BP 149/89; PULSE 63; RESP 16; TEMP 37; O2SAT 98
--- NOTE | 2019-02-24 01:09 | PC.NURSE ---
2300- Pt POD#0 lap arsenio w/ 4 lap sites present on abdomen. All sites covered w/ bandaids & CDI. Pt moving SBA to bathroom, denies pain in her stomach, LR running as ordered. VSS on RA; regular diet ordered and tolerated. 0500- New bag of LR hung, pr denies any pains or needs; VSS.
[2019-02-24 03:50] VITALS: BP 128/74; PULSE 71; RESP 16; TEMP 36.9; O2SAT 98
[2019-02-24] MEDS: LACTATED RINGERS 1,000 ML 125 ML IV (05:03)
[2019-02-24 08:31] VITALS: BP 140/55; PULSE 59; RESP 16; TEMP 36.6; O2SAT 97
--- NOTE | 2019-02-24 08:58 | PM.DS.1 ---
History of Present Illness Chief complaint: CHEST PAIN Narrative: The patient is a woman who developed severe right upper quadrant pain unlike anything she has ever had before. She has been having intermittent upper abdominal pain during her . Carbonated beverages seemed to in sight at the most. Fats did not seem to have an affect. She delivered her baby vaginally 3 weeks ago. She came into the emergency room today because of the severe pain. She is not breast feeding. Baby is being cared for by others right now. The patient last ate about 10:00 a.m.. Discharge Providers Date of admission: 02/23/19 17:41 Discharge Date: 02/24/19 Consults: 02/23/19 21:07 Consult to Discharge Planning Routine Comment: 02/23/19 21:35 Consult to Etl Developer Routine Comment: Discharge provider: Sabas Lilly MD Summary Discharge Diagnosis: Acute cholecystitis with obstruction of the gallbladder outlet/cystic duct due to impacted gallstone. Hydrops of the gallbladder. Obesity with a BMI of 30. Recent delivered 3 weeks ago. Hospital Course: Patient underwent a laparoscopic cholecystectomy. Postoperatively she did well. She declined the use of usual narcotics but she was able tolerate tramadol, Tylenol, and nonsteroidal anti-inflammatory agents. She is discharged tolerating a regular diet to follow up in the office. Status at Discharge Cognitive/behavioral status at discharge: oriented Functional status at discharge: independent ambulation Overall status at discharge: patient is progressing back to baseline Time Spent with Patient Less than 30 minutes Time spent discussing smoking cessation with patient: 3 to 10 minutes Exam Vital Signs (past 8 hours): - 02/24/19 03:50 02/24/19 08:31 Temperature 98.4 F 98 F Pulse Rate 71 59 L Respiratory Rate 16 16 Blood Pressure 128/74 140/55 L Pulse Oximetry 98 97 Oxygen Delivery Method Room Air Oxygen Flow Rate 0 Narrative Exam Narrative: Dressings dry and intact. abdomen is soft nontender. Lungs are clear. Moving well. Objective Labs Result Diagrams: 02/23/19 13:43 02/23/19 13:43 Labs: Laboratory Results - last 24 hr 02/23/19 02/23/19 02/23/19 13:43 13:43 13:43 WBC 13.4 H RBC 4.95 Hgb 14.4 Hct 44.7 MCV 90.4 MCH 29.2 MCHC 32.3 RDW 13.5 Plt Count 303 Neut % (Auto) 76.8 H Lymph % (Auto) 17.9 L Lassen % (Auto) 3.9 Eos % (Auto) 1.0 L Baso % (Auto) 0.4 Neut # (Auto) 62356 H Lymph # (Auto) 2400 Lassen # (Auto) 500 Eos # (Auto) 100 Baso # (Auto) 100 PT 10.1 INR 0.9 APTT 29 Sodium 139 Potassium 4.2 Chloride 104 Carbon Dioxide 26 BUN 15 Creatinine 0.70 Estimated GFR > 60.0 BUN/Creatinine Ratio 21.4 Glucose 90 Calcium 9.3 Total Bilirubin 0.1 L AST 19 ALT 27 Alkaline Phosphatase 74 Total Creatine Kinase 61 CK-MB (CK-2) TNP CK-MB (CK-2) Rel Index TNP Troponin I < 0.012 Total Protein 7.1 Albumin 4.3 Globulin 2.8 Albumin/Globulin Ratio 1.5 Lipase 61 Discharge Plan Discharge Plan Patient Disposition: Home Discharge Med Rec/Prescriptions Prescriptions: New tramadol 50 mg tablet 50 mg PO Q6H PRN (Reason: painful procedure) Qty: 10 RF: 0 ibuprofen 600 mg tablet 600 mg PO TID-QID PRN (Reason: painful procedure) Qty: 20 RF: 0 Follow up/Referrals: Sabas Lilly MD [Physician] - 03/05/19 4:00 pm (If you need to reach a doctor after hours please call our office and hold through the message until the page coagulating bath operator picks up) Provider Discharge Instructions Diet: Diet as Tolerated Activity: Do not lift over 10 lb (excluding your baby) or straining for 4 weeks. You may walk. Do not drive until pain free. Skin/Wound/Dressing Care Report to your healthcare provider any signs of infection, such as:: chills, fever, increased pain, unusual drainage and unusual redness Dressing: May remove dressings in 2 days and shower. Leave tape under the Band-Aids fall off on its own. Discharge Data Attending Provider: Sabas Lilly Admit Date/Time: 02/23/19 17:41
--- NOTE | 2019-02-24 09:04 | P.DS_ITS ---
History of Present Illness Chief complaint: CHEST PAIN Narrative: The patient is a woman who developed severe right upper quadrant pain unlike anything she has ever had before. She has been having intermittent upper abdominal pain during her . Carbonated beverages seemed to in sight at the most. Fats did not seem to have an affect. She delivered her baby vaginally 3 weeks ago. She came into the emergency room today because of the severe pain. She is not breast feeding. Baby is being cared for by others right now. The patient last ate about 10:00 a.m.. Discharge Providers Date of admission: 02/23/19 17:41 Discharge Date: 02/24/19 Consults: 02/23/19 21:07 Consult to Discharge Planning Routine Comment: 02/23/19 21:35 Consult to Security Screener Routine Comment: Discharge provider: Sabas Lilly MD Summary Discharge Diagnosis: Acute cholecystitis with obstruction of the gallbladder outlet/cystic duct due to impacted gallstone. Hydrops of the gallbladder. Obesity with a BMI of 30. Recent delivered 3 weeks ago. Hospital Course: Patient underwent a laparoscopic cholecystectomy. Postoperatively she did well. She declined the use of usual narcotics but she was able tolerate tramadol, Tylenol, and nonsteroidal anti-inflammatory agents. She is discharged tolerating a regular diet to follow up in the office. Status at Discharge Cognitive/behavioral status at discharge: oriented Functional status at discharge: independent ambulation Overall status at discharge: patient is progressing back to baseline Time Spent with Patient Less than 30 minutes Time spent discussing smoking cessation with patient: 3 to 10 minutes Exam Vital Signs (past 8 hours): - 02/24/19 03:50 02/24/19 08:31 Temperature 98.4 F 98 F Pulse Rate 71 59 L Respiratory Rate 16 16 Blood Pressure 128/74 140/55 L Pulse Oximetry 98 97 Oxygen Delivery Method Room Air Oxygen Flow Rate 0 Narrative Exam Narrative: Dressings dry and intact. abdomen is soft nontender. Lungs are clear. Moving well. Objective Labs Result Diagrams: 02/23/19 13:43 02/23/19 13:43 Labs: Laboratory Results - last 24 hr 02/23/19 02/23/19 02/23/19 13:43 13:43 13:43 WBC 13.4 H RBC 4.95 Hgb 14.4 Hct 44.7 MCV 90.4 MCH 29.2 MCHC 32.3 RDW 13.5 Plt Count 303 Neut % (Auto) 76.8 H Lymph % (Auto) 17.9 L Murray % (Auto) 3.9 Eos % (Auto) 1.0 L Baso % (Auto) 0.4 Neut # (Auto) 72741 H Lymph # (Auto) 2400 Murray # (Auto) 500 Eos # (Auto) 100 Baso # (Auto) 100 PT 10.1 INR 0.9 APTT 29 Sodium 139 Potassium 4.2 Chloride 104 Carbon Dioxide 26 BUN 15 Creatinine 0.70 Estimated GFR > 60.0 BUN/Creatinine Ratio 21.4 Glucose 90 Calcium 9.3 Total Bilirubin 0.1 L AST 19 ALT 27 Alkaline Phosphatase 74 Total Creatine Kinase 61 CK-MB (CK-2) TNP CK-MB (CK-2) Rel Index TNP Troponin I < 0.012 Total Protein 7.1 Albumin 4.3 Globulin 2.8 Albumin/Globulin Ratio 1.5 Lipase 61 Discharge Plan Discharge Plan Patient Disposition: Home Discharge Med Rec/Prescriptions Prescriptions: New tramadol 50 mg tablet 50 mg PO Q6H PRN (Reason: painful procedure) Qty: 10 RF: 0 ibuprofen 600 mg tablet 600 mg PO TID-QID PRN (Reason: painful procedure) Qty: 20 RF: 0 Follow up/Referrals: Sabas Lilly MD [Physician] - 03/05/19 4:00 pm (If you need to reach a doctor after hours please call our office and hold through the message until the page rotary machine operator picks up) Provider Discharge Instructions Diet: Diet as Tolerated Activity: Do not lift over 10 lb (excluding your baby) or straining for 4 weeks. You may walk. Do not drive until pain free. Skin/Wound/Dressing Care Report to your healthcare provider any signs of infection, such as:: chills, fever, increased pain, unusual drainage and unusual redness Dressing: May remove dressings in 2 days and shower. Leave tape under the Band- Aids fall off on its own. Discharge Data Attending Provider: Sabas Lilly Admit Date/Time: 02/23/19 17:41
--- NOTE | 2019-02-24 10:08 | CM.DANOTE ---
DCP/Assessment: Reviewed chart. Patient is a 28yr old female admitted to [facility] under OBS status with chest pain. No PCP listed. Primary payor is 1)[employer]. Met with patient explained CM/SW role. Patient alert and oriented at time of visit and plans to d/c home today. Patient ended up having her gallbladder removed on 02-23-[address] Lilly. Patient reports that she resides with her mother/Echo. Patient gave to baby girl approximately 3 weeks ago. Patient not currently breast feeding but eager to get home to her . Patient reports no d/c planning needs at this time. P: Home today. TEETEE De Leon Discharge Planning/Care Management CM Discharge Assessment Start: 02/24/19 09:27 Freq: Status: Active Protocol: Document 02/24/19 09:27 KJS (Rec: 02/24/19 10:07 KJS [id number]) Discharge Planning Assessment Assigned Rock Picker TEETEE De Leon Contact Information Echo (mother) [phone] Advance Directives? No History Provided By Patient Medical Record Prior Living Arrangements House Household Members family children friend(s) Type of transporation used prior to Drives own vehicle admit Willing to Return to Facility? No Independent with ADL's Yes Is patient alert and oriented? Yes Caregiver for Another Yes: Patient has 3 week old Barriers to Discharge No Discharge Plan Home Transportation Arrangement Family to provide transport. Additional Comment None requested by patient Whiteboard Updated in Patient Room with Yes name and ext. # of Rock Picker Review Status In Process Next Review Type Continued Stay Review
== END 2019-02-24 10:09 | disposition home or self-care (01) ==
LOC: ED 15:16 → AC 17:42
PROVIDERS: Admitting Provider Specialist; Emergency Provider Emergency Medicine; Visit Provider Specialist
PROC: 0FT44ZZ Resection of Gallbladder, Percutaneous Endoscopic Approach (ICD-10-PCS; CPT 47562; principal; 2019-02-23 18:00)
DX: K80.01 Calculus of gallbladder with acute cholecystitis with obstruction (principal); R07.9 Chest pain, unspecified; K82.1 Hydrops of gallbladder; F17.210 Nicotine dependence, cigarettes, uncomplicated; E66.9 Obesity, unspecified; Z68.30 Body mass index [BMI] 30.0-30.9, adult
CPT/HCPCS: 47562; 36591; 71045; 76700; 80053; 81003; 81025; 82550; 83690; 84484; 85025; 85610; 85730; 93005; 93010; 96361; 96374; 96375; 99220; 99283; 99285; G0378; C9113; J0690; J1100; J1885; J2250; J2405; J2704; J3010

== ENCOUNTER 2021-01-01 22:59 | Inpatient (IN) | payer OTHER, MEDICAID, SELFPAY ==
[2019-02-23 21:23] VITALS: BMI 29.7
[2021-01-01] MEDS: OXYTOCIN 10 UNIT/ML VIAL (23:30)
[2021-01-01 23:42] LABS: Add Manual Diff / Slide Review NO; Basophils Absolute Auto 100 /uL (0-100); Basophils Percent Auto 0.4 % (0-2); Eosinophils Absolute Auto 100 /uL (0-450); Eosinophils Percent Auto 0.7 % (2-4); Hematocrit 37.2 % (36-46); Hemoglobin 12.9 g/dL (12.0-16.0); Lymphocytes Absolute Auto 2100 /uL (1100-4500); Lymphocytes Percent Auto 13.7 % (25-40); Mean Corpuscular HGB Conc 34.6 % (30-36); Mean Corpuscular Hemoglobin 30.6 PG (26-34); Mean Corpuscular Volume 88.5 fL (80-100); Monocytes Absolute Auto 800 /uL (0-900); Monocytes Percent Auto 5.1 % (3-14); Neutrophils Absolute Auto 12400 /uL (1500-7000); Neutrophils Percent Auto 80.1 % (50-75); Platelet Count 243 X10^3/uL (150-400); Red Blood Cell Count 4.21 X10^6/uL (4.0-5.2); Red Cell Distribution Width 13.7 % (11.6-14.8); White Blood Cell Count 15.4 X10^3/uL (4.5-11.0)
[2021-01-01 23:50] LABS: COVID19 -Nasal RAPID Negative (Negative)
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
[2021-01-02] MEDS: IBUPROFEN 600 MG TABLET PO ×2 (00:53→19:23)
[2021-01-02] MEDS: DERMOPLAST SPRAY 20% 60 ML 1 SPRAY TOP (00:53)
[2021-01-02 01:00] LABS: Rubella Antibody IgG 9.7 IU/mL (>15)
[2021-01-02 01:19] LABS: HIV 1 & 2 Ab/Ag 4th Gen Combo NEGATIVE (NEGATIVE)
[2021-01-02 01:31] LABS: Hepatitis B Surface Antigen NEGATIVE s/c (NEGATIVE)
--- NOTE | 2021-01-02 07:45 | PM.OBPN.1 ---
Subjective - OB Subjective Patient comments: no complaints, pain well controlled and tolerating diet baby status: doing well and bottle feeding well feeding status: exclusively bottle feeding Narrative: No complaints this morning. She is seriously considering adopting infant out to her friend who has been struggling with fertility issues for years. She does not want to risk relapse and feels she has enough on her plate. Denies any obstetrical complaints. is doing well with bottle feeding. Date Patient Seen: 01/02/21 Time Patient Seen: 07:45 Exam Vital Signs (past 8 hours): - 01/02/21 Temperature 98.2 Pulse Rate 84 Respiratory Rate 18 Blood Pressure 136/85 Narrative Exam Narrative: General: Awake and alert, no acute distress. HEENT: NCAT, EOMI, moist oral mucosa CV: Regular rate and rhythm, no murmurs, rubs or gallops Lungs: CTAB, no wheezes, rales, or rhonchi Abdomen: Soft, nontender; bowel tones active; uterus firm 1 cm below umbilicus Extremities: Warm, no edema Objective Labs Result Diagrams: 01/01/21 23:10 Labs: Laboratory Results - last 24 hr 01/02/21 00:34 U Opiates 300ng/mL cut Negative Ur Oxycodone Screen Negative Urine Methadone Screen Negative Ur Barbiturates Screen Negative U Tricyclic Antidepress Negative Ur Phencyclidine Scrn Negative Ur Amphetamines Screen Positive H U Methamphetamines Scrn Negative Ur MDMA Scrn (Ecstasy) Negative U Benzodiazepines Scrn Negative Urine Cocaine Screen Negative U Marijuana (THC) Screen Negative Assessment & Plan Assessment and Plan (1) Spontaneous vaginal delivery: Status: Acute (2) No care in current : Status: Acute Plan day: 1 plan OB: routine care Comments: 30 year old after spontaneous vaginal delivery at home. complicated by no care though patient denies drug use other than prescription Adderall. Awaiting UDS once she is able to void which I expect this morning. She has been entirely appropriate while in the hospital with infant and staff. She is contemplating adoption and would appreciation discussion with social work. Anticipate discharge home tomorrow. Time Spent With Patient Time: Total time spent is greater than 50% in coordination of care (as documented) at patient's floor/unit and/or counseling patient: Time with patient: 15-24 minutes
[2021-01-02 12:14] LABS: UR Morphine/Opiate cutoff 300 Negative (Negative); Ur Creatinine Normal (Normal); Ur Specific Gravity Normal (Normal); Urine Amphetamines Positive (Negative); Urine Barbiturates Negative (Negative); Urine Cocaine Negative (Negative); Urine MDMA Negative (Negative); Urine Methamphetamines Negative (Negative); Urine Phencyclidine Negative (Negative); Urine Tetrahydrocannabinol Negative (Negative); Urine pH Normal (Normal)
[2021-01-02 12:15] LABS: Urine Benzodiazepines Negative (Negative); Urine Methadone Negative (Negative); Urine Oxycodone Negative (Negative); Urine Tricyclic Antidepressant Negative (Negative)
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
[2021-01-03] MEDS: IBUPROFEN 600 MG TABLET PO ×2 (05:34→11:56)
--- NOTE | 2021-01-03 08:28 | P.DS_ITS ---
Discharge Providers Provider Date of admission: 01/01/21 22:59 Discharge Date: 01/03/21 Consults: 01/02/21 08:15 Consult to MANAGER MAINTENANCE - Clinical Manager Routine Comment: No care, h/o drug abuse, adoption?? 01/03/21 00:08 Consult to Bottled Beverage Inspector Routine Comment: Discharge provider: Paulina Eid DO Summary Hospital Course Date Patient Seen: 01/03/21 Time Patient Seen: 08:34 Hospital Course: Patient is a 30 year old G5 now P3 (P1223) after spontaneous vaginal delivery at home on 01/01/21 to a well, term-appearing female . Placenta delivered shortly after arrival to the hospital and a second degree perineal la ceration was repaired. There were no complications after delivery or . Vaginal bleeding is light to moderate as expected. Pain well-controlled. She is ambulating, voiding and stooling. Infant is bottle feeding. She had a couple mildly elevated blood pressures which improved spontaneously. Denied JI, RUQ abdominal pain or edema. Reviewed signs and symptoms of pre-eclampsia to monitor for at home. She did not receive any care but was scheduled for an US next week at [facility]. She states she was aware she was but in denial and did not realize how far along she was. She as has a h/o opiate and meth abuse but has been clean 2 years. She has been taking Adderall from an online mental health provider who did not know of the . UDS was appropriately positive for amphetamines only. Social work met with her and did not feel there was any need for CPS involvement at this time. Patient plans to give her up for adoption to a friend who has had fertility problems. Her friend came to the hospital yesterday and has a aerial hurricane hunter to start the adoption process. We discussed her history of probable depression and anxiety in addition to ADHD. Her online mental health provider prescribed Wellbutrin but she stopped taking it because she did not like how it made her feel. She has not used any other depression or anxiety medications. After much discussion, she would like to start medication pre-emptively given her current situation and plan for adoption of her infant. Denies a h/o zelda or diagnosis of bipolar disorder though multiple family members have bipolar disorder. We elected to start sertraline 25 mg daily and will see her in clinic next week to follow up. She is also interested in counseling and we discussed the [facility] Program available through our clinic. Lastly we discussed options for contraception. She has done well with Depo Provera in the past so this was administered prior to discharge. Ultimately she would like a tubal ligation. Call for fevers, severe pain or bleeding through more than a pad an hour. She will also call if she has adverse effects to sertraline. We will see her in clinic on January 12 at 9:30 AM. Peripartum Data Delivery Method: Natural Vaginal Laceration Description: Perineal - 2nd Degree complications: none [place] 1: Gender: Female Disposition of : adopted out Discharge Diagnosis (1) Spontaneous vaginal delivery: Status: Acute (2) No care in current : Status: Acute (3) Depression: Status: Acute Status at Discharge Cognitive/behavioral status at discharge: oriented Functional status at discharge: independent ambulation Overall status at discharge: patient is progressing back to baseline Time Spent with Patient Time attestation: Total time spent providing and/or coordinating discharge se rvices: Time spent: Less than 30 minutes Objective Labs Result Diagrams: 01/01/21 23:10 Labs: Laboratory Results - last 24 hr 01/02/21 00:34 U Opiates 300ng/mL cut Negative Ur Oxycodone Screen Negative Urine Methadone Screen Negative Ur Barbiturates Screen Negative U Tricyclic Antidepress Negative Ur Phencyclidine Scrn Negative Ur Amphetamines Screen Positive H U Methamphetamines Scrn Negative Ur MDMA Scrn (Ecstasy) Negative U Benzodiazepines Scrn Negative Urine Cocaine Screen Negative U Marijuana (THC) Screen Negative Exam Vital Signs (past 8 hours): Temperature 97.8? blood pressure 120/67 heart rate 69 respirations 18 Narrative Exam Narrative: General: Awake and alert, no acute distress. HEENT: NCAT, EOMI, moist oral mucosa CV: Regular rate and rhythm, no murmurs, rubs or gallops Lungs: CTAB, no wheezes, rales, or rhonchi Abdomen: Soft, nontender; bowel tones active; uterus firm 1 cm below umbilicus Extremities: Warm, no edema Discharge Plan Discharge Plan Patient Disposition: Home Discharge orders & Medications Prescriptions: New sertraline 25 mg tablet 25 mg PO DAILY Qty: 30 RF: 1 Continued ibuprofen 600 mg tablet 600 mg PO TID-QID PRN (Reason: painful procedure) Qty: 20 RF: 0 Discontinued tramadol 50 mg tablet 50 mg PO Q6H PRN (Reason: painful procedure) Qty: 10 RF: 0 Follow up/Referrals: Paulina Eid DO [Physician] - 01/12/21 9:30 am Visit Report/Discharge Packet Stand Alone Forms: Discharge: Care Visit Report Forms: Patient Portal/API, Stroke Signs & Symptoms
[2021-01-03 09:13] VITALS: BP 144/86; PULSE 72; RESP 16; TEMP 36.6
[2021-01-03 11:47] LABS: RPR Screen Non Reactive (Non Reactive)
[2021-01-03] MEDS: MEDROXYPROGESTERONE 150 MG/ML IM (11:54)
[2021-01-03] MEDS: MEASLES,MUMPS,RUBELLA VACC/PF 0.5 ML VIAL SUBCUT (11:55)
[2021-01-03] MEDS: DOCUSATE 100 MG CAPSULE PO (11:56)
[2021-01-03] MEDS: PRENATAL VIT,CALC/IRON/FOLIC 1 TABLET 1 TAB PO (11:57)
== END 2021-01-03 14:35 | disposition home or self-care (01) | DRG 952 ==
PROVIDERS: Admitting Provider Family Medicine; Referring Provider Obstetrics & Gynecology; Visit Provider Family Medicine
DX: Z39.0 Encounter for care and examination of mother immediately after delivery (principal); O99.345 Other mental disorders complicating the puerperium; F32.9 Major depressive disorder, single episode, unspecified; O70.1 Second degree perineal laceration during delivery; O62.3 Precipitate labor; Z3A.00 Weeks of gestation of pregnancy not specified; Z20.822 Contact with and (suspected) exposure to COVID-19
CPT/HCPCS: 36415; 59414; 80305; 85025; 86592; 86762; 86850; 86900; 86901; 87340; 87389; 87635; 99221; 99238; C9803; G0379; J1050; J2590

== ENCOUNTER → 2021-08-08 13:37 | Outpatient (CLI) | payer OTHER, MEDICAID, SELFPAY ==
[2019-02-23 21:23] VITALS: BMI 29.7
[2021-08-08 16:39] LABS: COVID19 -Nasal RAPID Negative (Negative)
== END ==
PROVIDERS: Visit Provider Obstetrics & Gynecology
DX: Z20.822 Contact with and (suspected) exposure to COVID-19 (principal); Z01.812 Encounter for preprocedural laboratory examination
CPT/HCPCS: 87635; C9803

== ENCOUNTER 2021-08-09 08:48 | Day surgery (SDC) | payer OTHER, MEDICAID, SELFPAY ==
[2019-02-23 21:23] VITALS: BMI 29.7
[2021-08-06 09:28] VITALS: BMI 35.9
[2021-08-09] VITALS (8 sets, daily range): BP systolic 99–120; BP diastolic 50–80; PULSE 48–78; RESP 12–20; TEMP 36.3–36.6; O2SAT 97–100; BMI 35.9
--- NOTE | 2021-08-09 | PATH_ITS ---
[facility] Accession Number: [id number] . 01 Material submitted: . fallopian tube - BILATERAL FALLOPIAN TUBES . 02 Diagnosis: Bilateral Fallopian Tubes: Complete cross sections of fallopian tubes x2. Negative for atypia or malignancy. MRV 08/13/2021 1312 Local . 02 Electronically signed: . Taniya Corbin MD, Pathologist NPI- [id number] . 01 Gross description: . The specimen is received in formalin, labeled bilateral fallopian tubes and consists of two fallopian tubes measuring 7.0 cm in length by 1.0 cm in diameter each. The serosa is pink-purple and smooth with multiple paratubal cysts ranging from 0.1-0.2 cm. Sectioning reveals a anderson-pink mucosa and a stellate lumen measuring 0.2 cm in diameter. Canvas Cutter Machine sections of each fallopian tube are submitted, to include the en face margin (blue), central cross sections and bisected fimbria, in cassettes A1-A2. (EA:[id number]) /MRV 08/10/2021 1031 Local . 02 Pathologist provided ICD-10: Z30.2 . 02 CPT . 921918 Performed at: 01 [facility] [address], [place], [place] [id number] MD Chandan Dow MD Phone: [phone] Performed at: 02 [facility] [address] [place], [place] [id number] MD Violet Godoy MD Phone: [phone]
[2021-08-09] MEDS: LACTATED RINGERS 1,000 ML 100 ML IV (09:25)
[2021-08-09] MEDS: ACETAMINOPHEN 325 MG TABLET 975 MG PO (09:26)
--- NOTE | 2021-08-09 09:35 | PM.HP.1 ---
History of Present Illness History of Present Illness Date Patient Seen: 08/09/21 Time Patient Seen: 09:35 Chief complaint: LAPAROSCOPIC SALPINGECTOMY Narrative: Patient is a 31-year-old 6 para 3 who presents for permanent sterilization with a laparoscopic bilateral salpingectomy. Patient History Medical History Anxiety Drug use affecting H/O drug abuse Spontaneous vaginal delivery Surgical History H/O dilation and curettage H/O hernia repair History of cholecystectomy Status post delivery Family & Social History Social History: household members family,children lives independently No caregiver/support person Yes: Mother Tobacco & Substance use: Tobacco type cigarettes Smoking Status Current every day smoker Smoking packs per day 0.5 alcohol intake current alcohol intake frequency a few times a month Substance Use Type does not use,painkillers Meds Home Medications and Allergies Home Medications Medication Instructions Recorded Confirmed Type ibuprofen 600 mg tablet 600 mg PO TID-QID PRN #20 tab 02/24/19 08/09/21 Rx sertraline 100 mg tablet 150 mg PO DAILY #45 tab 06/28/21 08/09/21 Rx dextroamphetamine-amphetamine 10 10 mg PO BID #60 tab 08/02/21 08/09/21 Rx mg tablet (Adderall) Allergies Allergy/AdvReac Type Severity Reaction Status Date / Time codeine Allergy Hives Verified 08/09/21 09:07 Exam Vital Signs (past 8 hours): - 08/09/21 09:14 Temperature 97.8 F Pulse Rate 78 Respiratory Rate 18 Blood Pressure 120/80 Pulse Oximetry 97 Oxygen Delivery Method Room Air Narrative Exam Narrative: HEENT: No thyromegaly, no anterior cervical or supraclavicular lymphadenopathy. Lungs:Clear to auscultation bilaterally, no wheezes. Cardiovascular: Regular rate and rhythm, no murmurs, rubs, or gallops. Abdomen: Well-healed Pfannenstiel and laparoscopy scars. No hepatosplenomegaly. No masses palpable. External genitalia: Normal Vagina: Normal Cervix: Normal Bimanual exam: 6 Week size anteverted uterus. Mobile. Assessment & Plan Assessment & Plan narrative: Assessment: 31-year-old 6 para 3 desires permanent sterilization Plan: Laparoscopic bilateral salpingectomy The risks, benefits, and alternatives to the procedure were explained to the patient. The risks including bleeding, infection, injury to the bowel, bladder, or ureters. She understands these risks and agrees to proceed. A full par Q was held and consent form was signed. COVID-19 COVID-19 status: Negative Result date/Date tested (Pos, Neg/Pending): 08/08/21 Time Spent With Patient Time with patient: less than 30 minutes Critical Care time: I spent a total of [] minutes of critical care time on this patient's care today; this time is exclusive of procedural time.
--- NOTE | 2021-08-09 09:37 | PM.PREOP ---
Pre-operative Note COVID-19 COVID-19 status: Negative Result date/Date tested (Pos, Neg/Pending): 08/08/21 Interval Note History & Physical reviewed/Exam performed by Physician: Yes Changes to H&P: No H&P completed within 30 days and has changed as indicated here:: 08/09/21
--- NOTE | 2021-08-09 10:19 | SUR.OPER ---
Lithotomy on padded OR bed, head on pillow, arms padded and tucked bilateral. Legs secured in padded yellow fins stirrups.
[2021-08-09] MEDS: BUPIVACAINE 0.5% (PF) VIAL 30 ML INJ (10:26)
--- NOTE | 2021-08-09 11:01 | SUR.PHASEI ---
Patient from OR in stretcher with Oksana Son and Dr Sanchez after general anesthesia. SBAR report at [facility]. Pt with oral airway, breathing unassisted on room air.
--- NOTE | 2021-08-09 11:05 | PM.GYNOP.1 ---
Operative Date/Time/Diagnoses Date of procedure: 08/09/21 Time of procedure: 11:05 Pre-op diagnosis: Desires permanent sterilization Post-op diagnosis: same Procedure & Clinicians Procedure: Procedures Operation Date: 08/09/21 10:15 Actual Procedure Side Surgeon p Laparoscopic Salpingectomy Na Stover MD Indications: Desires permanent sterilization Surgeon: Na Stover Anesthesia Type: General and Local Operative Notes Findings: 7 week size anteverted uterus Normal tubes and ovaries Normal liver Gallbladder previously removed Appendix not visualized Closure Type: primary Specimen(s): left tube and right tube Estimated blood loss (mL): 5 Blood products transfused: none Procedure in detail: After informed consent was obtained, the patient was taken to the operating room where she was placed in the dorsal supine position. After adequate general endotracheal anesthesia was achieved, she was placed in the dorsal lithotomy position, and prepped and draped in the usual sterile fashion. A time-out was performed. A bivalve speculum was placed into the vagina and the anterior lip of the cervix was grasped with a single-tooth tenaculum. Cervical os was sequentially dilated until the Zumi uterine manipulator could pass easily into the endometrial cavity. The single-tooth tenaculum was removed from the anterior lip of the cervix. The bivalve speculum was removed from the vagina. Attention was then turned to the abdomen where 6 cc of 0.5% Marcaine were injected in the umbilical fold. A 5 mm incision was made. The long Veress needle was placed into the peritoneal cavity, and its placement confirmed by aspiration and drop test. The abdominal cavity was insufflated with 3.6 L of CO2. The Veress needle was removed, and a long 5 mm trocar was placed under direct visualization. Two other incisions were made 4 cm lateral to the midline after 6 cc of 0.5% Marcaine were injected. Two 5 mm trocars were placed under direct visualization. The pelvis and abdomen were examined with findings noted above. The right tube was grasped with an atraumatic grasper. Using the PlasmaKinetic was settings at 40 w the mesosalpinx was cauterized and cut all the way down to the cornua of the uterus. The tube was amputated at the cornua. This was repeated on the patient's left tube. Hemostasis was achieved. The tubes were removed through 5 mm trocars. The instruments were removed from the abdomen. The CO2 was allowed to escape. The incisions were closed with 4-0 Monocryl in subcuticular fashion. Steri-Strips and Allevyn dressings were placed. The Zumi uterine manipulator was removed from the uterus. Sponge, lap, and instrument counts were correct x2. The patient tolerated the procedure well, and was taken to PACU in stable condition. Complications: none Post-operative Condition: stable Disposition: PACU Plan for aftercare: Home after recovery
--- NOTE | 2021-08-09 11:18 | SUR.PHASEI ---
Sbar report at bedside to Bhumi NIETO
--- NOTE | 2021-08-09 11:27 | SUR.PHASEII ---
Recieved sbar report from Codi RN, pt resting comfortably in bed, rash noted to stomach, per offgoing RN improving after 25 mg iv benadryl. No reports of pain from pt, will continue to monitor.
[2021-08-09] MEDS: OXYCODONE IR 5 MG TABLET PO (11:48)
== END 2021-08-09 12:10 | disposition home or self-care (01) ==
PROVIDERS: PCP Family Medicine; Referring Provider Obstetrics & Gynecology; Visit Provider Obstetrics & Gynecology
PROC: (CPT 58661; principal; 2021-08-09 10:15)
DX: Z30.2 Encounter for sterilization (principal); F41.9 Anxiety disorder, unspecified
CPT/HCPCS: 58661; 81025; J0330; J1100; J1200; J1885; J2250; J2405; J2704; J3010

== ENCOUNTER → 2023-02-26 14:31 | Outpatient (CLI) | payer OTHER, MEDICAID, SELFPAY ==
[2022-01-14 17:20] VITALS: BMI 29.7
[2023-02-26 14:55] LABS: Add Manual Diff / Slide Review NO; Basophils Absolute Auto 100 /uL (0-100); Basophils Percent Auto 0.9 % (0-2); Eosinophils Absolute Auto 200 /uL (0-450); Eosinophils Percent Auto 1.8 % (2-4); Hematocrit 41.9 % (36-46); Lymphocytes Absolute Auto 2400 /uL (1100-4500); Lymphocytes Percent Auto 27.7 % (25-40); Mean Corpuscular HGB Conc 33.5 % (30-36); Mean Corpuscular Hemoglobin 30.7 PG (26-34); Mean Corpuscular Volume 91.4 fL (80-100); Monocytes Absolute Auto 500 /uL (0-900); Neutrophils Absolute Auto 5600 /uL (1500-7000); Neutrophils Percent Auto 63.6 % (50-75); Platelet Count 254 X10^3/uL (150-400); Red Blood Cell Count 4.58 X10^6/uL (4.0-5.2); Red Cell Distribution Width 14.2 % (11.6-14.8); White Blood Cell Count 8.8 X10^3/uL (4.5-11.0)
[2023-02-26 16:03] LABS: Alanine Aminotransferase 28 IU/L (<35); Albumin Globulin Ratio 1.5 (1.0-2.8); Alkaline Phosphatase 43 U/L (38-126); Aspartate Aminotransferase 23 IU/L (14-36); BUN Creatinine Ratio 21.9 (6-22); Bilirubin Total 0.2 mg/dL (0.2-1.3); Blood Urea Nitrogen 14 mg/dL (7-17); Calcium 8.6 mg/dL (8.4-10.2); Carbon Dioxide 27 mmol/L (22-32); Chloride 104 mmol/L (98-107); Cholesterol 200 mg/dL (140-199); Estimated Glomerular Filt Rate > 60 mL/min (>60); Globulin 2.7 g/dL (1.7-4.1); Glucose 92 mg/dL (70-100); HDL Cholesterol 40 mg/dL (40-60); HEMOLYSIS < 15 (0-50); LDL Cholesterol Calculated 123 mg/dL (<100); Potassium 3.8 mmol/L (3.4-5.1); Sodium 138 mmol/L (137-145); Total Protein 6.7 g/dL (6.3-8.2); Triglycerides 184 mg/dL (35-150)
[2023-02-26 16:32] LABS: TSH w/ Reflex to FT4 1.37 uIU/mL (0.47-4.68)
== END ==
PROVIDERS: PCP Family Medicine; Referring Provider Family Medicine; Visit Provider Family Medicine
DX: E66.9 Obesity, unspecified (principal)
CPT/HCPCS: 36415; 80053; 80061; 84443; 85025

== ENCOUNTER → 2024-08-18 15:01 | Outpatient (CLI) | payer OTHER, MEDICAID, SELFPAY ==
[2024-06-30 13:56] VITALS: BMI 29.7
[2024-08-18 15:35] LABS: Add Manual Diff / Slide Review NO; Basophils Absolute Auto 200 /uL (0-100); Basophils Percent Auto 2.1 % (0-2); Eosinophils Absolute Auto 300 /uL (0-450); Eosinophils Percent Auto 2.5 % (2-4); Hematocrit 46.3 % (36-46); Hemoglobin 15.9 g/dL (12.0-16.0); Lymphocytes Absolute Auto 3000 /uL (1100-4500); Lymphocytes Percent Auto 27.7 % (25-40); Mean Corpuscular HGB Conc 34.3 % (30-36); Mean Corpuscular Hemoglobin 32.7 PG (26-34); Mean Corpuscular Volume 95.5 fL (80-100); Monocytes Absolute Auto 700 /uL (0-900); Monocytes Percent Auto 6.4 % (3-14); Neutrophils Absolute Auto 6600 /uL (1500-7000); Neutrophils Percent Auto 61.3 % (50-75); Platelet Count 296 X10^3/uL (150-400); Red Blood Cell Count 4.85 X10^6/uL (4.0-5.2); Red Cell Distribution Width 13.3 % (11.6-14.8); White Blood Cell Count 10.7 X10^3/uL (4.5-11.0)
[2024-08-18 16:39] LABS: BUN Creatinine Ratio 21.5 (6-22); Blood Urea Nitrogen 14 mg/dL (7-17); Carbon Dioxide 24 mmol/L (22-32); Chloride 107 mmol/L (98-107); Cholesterol 213 mg/dL (140-199); Estimated Glomerular Filt Rate > 60 mL/min (>60); Glucose 93 mg/dL (70-100); HDL Cholesterol 43 mg/dL (40-60); HEMOLYSIS < 15 (0-50); LDL Cholesterol Calculated 133 mg/dL (<100); Potassium 4.6 mmol/L (3.4-5.1); Sodium 138 mmol/L (137-145); Triglycerides 186 mg/dL (35-150)
[2024-08-18 16:48] LABS: Hemoglobin A1C% w Est Avg Glu 5.2 % (4.0-6.0)
[2024-08-18 20:45] LABS: Thyroid Stimulating Hormone 0.919 uIU/mL (0.47-4.68)
== END ==
PROVIDERS: PCP Nurse Practitioner Family; Referring Provider Nurse Practitioner Family; Visit Provider Nurse Practitioner Family
DX: E78.5 Hyperlipidemia, unspecified (principal); E66.01 Morbid (severe) obesity due to excess calories; Z68.41 Body mass index [BMI] 40.0-44.9, adult
CPT/HCPCS: 36415; 80048; 80061; 83036; 84443; 85025